=== PATIENT | female | born 1980 | race African-American/Black ===

== ENCOUNTER 2022-10-05 20:06 | Emergency (ER) | payer MEDICAID ==
[2022-10-05 22:23] LABS: APPEARANCE,URINE CLEAR (Clear); BILIRUBIN,URINE NEGATIVE (Negative); COLOR,URINE YELLOW (Yellow); GLUCOSE,URINE NEGATIVE (Negative); KETONES,URINE NEGATIVE (Negative); LEUKOCYTE ESTERASE,URINE NEGATIVE (Negative); NITRITE,URINE NEGATIVE (Negative); OCCULT BLOOD,URINE NEGATIVE (Negative); PH,URINE 6.5 (5.0-8.0); PROTEIN,URINE TRACE (Negative); UROBILINOGEN,URINE 0.2 (0.2-1.0)
[2022-10-05 22:32] LABS: BACTERIA,URINE FEW /hpf (FEW); MUCUS,URINE FEW /hpf (FEW); RBC,URINE 0-5 /hpf (0-5); SQUAMOUS EPITHELIAL CELLS,UR 0-5 /hpf (0-5); WBC,URINE 0-5 /hpf (0-5)
[2022-10-05 23:49] LABS: C. TRACHOMATIS BY PCR NOT DETECTED; N. GONORRHOEAE BY PCR NOT DETECTED
[2022-10-06] MEDS ORDERED: Fluconazole 150 MG Tab PO ONE (00:26)
== END 2022-10-06 01:00 | disposition home or self-care (01) ==
LOC: JD.ED 20:06
DX: B37.31 Acute candidiasis of vulva and vagina (principal)
CPT/HCPCS: 0352U; 81001; 87491; 87591; 99283; A9270

== ENCOUNTER 2023-06-21 13:27 | Emergency (ER) | payer MEDICAID ==
[2023-06-21 15:02] LABS: CORONAVIRUS COVID-19 NAA NEGATIVE (NEGATIVE); INFLUENZA A NAA POSITIVE (NEGATIVE); RESPIRATORY SYNCYTIAL VIR NAA NEGATIVE (NEGATIVE)
[2023-06-21] MEDS: amLODIPine 5 MG Tab PO ONE (15:02)
[2023-06-21 17:10] LABS: C. TRACHOMATIS BY PCR NOT DETECTED; N. GONORRHOEAE BY PCR NOT DETECTED
== END 2023-06-21 17:50 | disposition home or self-care (01) ==
LOC: JD.ED 13:27
DX: J10.1 Influenza due to other identified influenza virus with other respiratory manifestations (principal); I10 Essential (primary) hypertension; Z72.51 High risk heterosexual behavior
CPT/HCPCS: 0241U; 0352U; 36415; 86592; 87449; 87491; 87591; 99283; A9270; G0433

== ENCOUNTER 2024-10-31 00:41 | Emergency (ER) | payer MEDICAID, OTHER | END 2024-10-31 02:32 | disposition home or self-care (01) | LOC: JD.ED 00:41 | DX: J02.9 Acute pharyngitis, unspecified (principal); Z79.899 Other long term (current) drug therapy | CPT/HCPCS: 71045; 71045-26; 87428-QW; 99283 ==